=== PATIENT | female | born 2000 | race Two or more races ===

== ENCOUNTER 2023-01-08 16:52 | Emergency (ER) | payer OTHER ==
[~2023-01-08] VITALS: Ht 167.6 cm; Wt 61.2 kg
== END 2023-01-08 20:09 | disposition home or self-care (01) ==
LOC: ER 16:52
DX: S61.214A Laceration without foreign body of right ring finger without damage to nail, initial encounter (principal); W45.8XXA Other foreign body or object entering through skin, initial encounter; Y93.89 Activity, other specified; Y92.89 Other specified places as the place of occurrence of the external cause; Y99.8 Other external cause status